=== PATIENT | female | born 1990 | race American Indian/Alaskan Native ===

== ENCOUNTER 2021-07-28 14:21 | Emergency (ER) | payer MEDICAID ==
[2021-07-28] MEDS ORDERED: ACETAMINOPHEN 500 MG TAB PO ONE (15:26)
--- NOTE | 2021-07-28 16:50 | Ultrasound Report ---
US OB transvaginal, US OB <= 14 weeks fetus INDICATION / CLINICAL INFORMATION: preg, vag bleedin. COMPARISON: None available. FINDINGS: Transabdominal and transvaginal imaging was performed. There is hypoechogenicity in the endometrial cavity which may be due to endometrial fluid/hemorrhage. No discrete gestational sac, yolk sac, or pole. Endometrial echo complex measures 14 mm (this measurement includes the endometrial fluid) Right ovary is unremarkable. Within the left ovary there is a complex cyst measuring 2.1 cm. Small amount of free fluid is noted in the cul-de-sac. IMPRESSION: 1. Small amount of endometrial fluid. No intrauterine gestational sac. No adnexal lesions are seen. C orrelation with serial beta hCG and short-term sonographic follow-up is recommended. 2. There is mild, somewhat complex free fluid in the pelvis. 3. 2.1 cm complex left ovarian lesion. Signer Name: Joshua Gandhi MD Signed: 07/28/2021 4:46 PM Workstation Name: [id number]
[2021-07-28 17:27] LABS: Hemoglobin 12.7 gm/dl (10.1-14.3); Mean Corpuscular HGB Conc 35 % (30-34); Mean Corpuscular Volume 87 fl (79-97); Red Blood Count 4.16 M/mm3 (3.65-5.03); Red Cell Distribution Width 13.8 % (13.2-15.2)
[2021-07-28 17:29] LABS: Platelet Count 175 K/mm3 (140-440)
[2021-07-28 17:42] LABS: Alanine Aminotransferase 16 units/L (7-56); Albumin 4.4 g/dL (3.9-5); Blood Urea Nitrogen 13 mg/dL (7-17); Calcium 8.6 mg/dL (8.4-10.2); Hemolysis Index 6
[2021-07-28 17:45] LABS: BUN/Creatinine Ratio 26
[2021-07-28 18:18] LABS: Bilirubin,Urine NEG (Negative); Blood,Urine SM (Negative); Color,Urine Straw (Yellow); Urobilinogen,Urine < 2.0 mg/dL (<2.0)
--- NOTE | 2021-07-28 18:59 | Emergency Department Report ---
ED HPI - General Chief complaint: Vaginal Bleeding Stated complaint: ABD PAIN/VAG BLEEDING Time Seen by Provider: 07/28/21 15:23 Source: patient, EMS Mode of arrival: Ambulatory Limitations: No Limitations - History of Present Illness Initial comments: 31 yof who is about 5 weeks gestation with pmh of HTN presents to ed for evaluation of abdominal pain and vaginal bleeding. She states that when she woke up this am, she had some vaginal spotting that has gotten worse along with some abdominal pain and cramping. She states that she is from [place], here for wedding and has not seen waste oil pumper yet. MD Complaint: abdominal pain, vaginal bleeding -: Gradual, hour(s) Location: abdomen Radiation: LLQ, RLQ Severity: severe Severity scale (0 -10): 10 Quality: cramping, aching Consistency: constant Associated symptoms: vaginal bleeding, abdominal pain. denies: nausea/vomiting, vaginal discharge, headache, malaise, dysparuenia, shortness of breath, syncope, weakness Vaginal bleeding: light :: Yes Number of weeks : 5 OB History - Previous Pregnancies: no complications Pre- care: none - Related Data : 2 Para: 1 Allergies Allergy/AdvReac Type Severity Reaction Status Date / Time No Known Allergies Allergy Verified 07/28/21 14:23 ED Review of Systems ROS: Stated complaint: ABD PAIN/VAG BLEEDING Other details as noted in HPI Comment: All other systems reviewed and negative Constitutional: denies: chills, diaphoresis, fever, malaise Eyes: denies: eye pain ENT: ear pain. denies: throat pain Respiratory: denies: shortness of breath, SOB at rest Cardiovascular: denies: chest pain, palpitations, dyspnea on exertion Endocrine: no symptoms reported Gastrointestinal: abdominal pain. denies: nausea, vomiting, diarrhea, constipation, hematemesis, melena, hematochezia Genitourinary: denies: urgency, dysuria, hematuria, discharge Musculoskeletal: denies: back pain Skin: denies: rash, lesions Neurological: denies: headache Psychiatric: denies: anxiety ED Physical Exam - General Limitations: No Limitations General appearance: alert, in no apparent distress - Head Head exam: Present: atraumatic, normocephalic - Eye Eye exam: Present: normal appearance. Absent: conjunctival injection - Neck Neck exam: Present: normal inspection. Absent: tenderness - Respiratory Respiratory exam: Present: normal lung sounds bilaterally. Absent: respiratory distress, chest wall tenderness - Cardiovascular Cardiovascular Exam: Present: regular rate, normal heart sounds - GI/Abdominal GI/Abdominal exam: Present: soft, tenderness (bilateral lower quads), normal bowel sounds. Absent: distended - Extremities Exam Extremities exam: Present: normal inspection, full ROM - Back Exam Back exam: Present: normal inspection, full ROM. Absent: tenderness, CVA tenderness (R), CVA tenderness (L) - Neurological Exam Neurological exam: Present: alert, oriented X3 - Psychiatric Psychiatric exam: Present: normal affect, normal mood - Skin Skin exam: Present: warm, dry, intact, normal color ED Course Vital Signs 07/28/21 07/28/21 07/28/21 14:22 16:46 19:26 Temperature 98 F Pulse Rate 78 89 Respiratory 18 14 18 Rate Blood Pressure 150/100 160/103 [Right] O2 Sat by Pulse 100 99 Oximetry ED Medical Decision Making - Lab Data Result diagrams: 07/28/21 17:03 07/28/21 17:03 - Radiology Data Radiology results: report reviewed OB US: 1. Small amount of endometrial fluid. NO intrauterine gestational sca. No adnexal lesions seen. Correlation with serial beta HCG and short-term sonographic follow up. 2. There is mild, somewhat complex free fluid in the pelvis. 3. 2.1 cm complex left ovarian lesion. - Medical Decision Making 31 yof who is about 5 weeks gestation with pmh of HTN presents to ed for evaluation of abdominal pain and vaginal bleeding. She states that when she woke up this am, she had some vaginal spotting that has gotten worse along with some abdominal pain and cramping. She states that she is from [facility] for wedding and has not seen waste oil pumper yet. No gross abnormalities noted on cbc, cmp, ua negative for UTI, and no IUP noted on US. Patient is noted to have HCG over 5000 with no adnexal lesions noted. Abdominal pain resolved after tylenol. Ectopic unlikely. Patient was advised that she is having a threatened miscarriage and needs to follow up with waste oil pumper in 2-3 days for repeat HCG level and further evaluation. She was given strict return precautions to return to Ed if she has increasing abdominal pain, fever, syncope, or increased bleeding. She verbalized understanding of and agreement with plan of care. Critical care attestation.: If time is entered above; I have spent that time in minutes in the direct care of this critically ill patient, excluding procedure time. ED Disposition Clinical Impression: Threatened miscarriage in early , Vaginal bleeding affecting early Disposition: 01 HOME / SELF CARE / HOMELESS Is pt being admited?: No Does the pt Need Aspirin: No Condition: Stable Instructions: Threatened Miscarriage, [id number], Vaginal Bleeding During , First Trimester, [id number] Additional Instructions: Follow-up in 2 to 3 days for repeat hCG level. Your hCG level today is 5443. Return to the emergency department if worsening symptoms. Referrals: PRIMARY CARE, [Primary Care Provider] - 3-5 Days ALVIN MIRZA MD [Staff Physician] - 3-5 Days Time of Disposition: 18:59
[2021-07-28 19:27] VITALS: BP 160/103
== END 2021-07-28 19:10 | disposition home or self-care (01) ==
LOC: ED 14:21
DX: O20.0 Threatened abortion (principal); O20.8 Other hemorrhage in early pregnancy; Z3A.01 Less than 8 weeks gestation of pregnancy
CPT/HCPCS: 36415; 76801; 76817; 80053; 81001; 84702; 85027; 86900; 86901; 99284